=== PATIENT | female | born 1950 | race Hispanic/Latino ===

== ENCOUNTER 2017-11-24 06:34 | Day surgery (SDC) | payer OTHER, MEDICARE ==
[~2017-11-24] VITALS: Ht 162.6 cm; Wt 97.0 kg
[~2017-11-24 06:34] MED LIST: ADV250 IH; ALBU8.5H8 IH; AMLO5TAB2 PO; CARV25TA PO; CLON1PAT13 TD; DOCU100C19 PO; METO5TAB2 PO; MONT10TA24 PO; NITR0.4T50 SL; OMEP40CA37 PO; PHEN125O3 PO; SIMV20TA6 PO; VALS320T15 PO
[2017-11-24] MEDS ORDERED: SODIUM CHLORIDE 0.9% 1000ML 1,000 ML IV ONE (06:48)
[2017-11-24 07:00] VITALS: BP 129/80
[2017-11-24] MEDS ORDERED: PROPOFOL 10 MG/ML 20ML VIAL IV ONE (07:38)
[2017-11-24 07:45] VITALS: BP 114/60
== END 2017-11-24 08:18 | disposition home or self-care (01) ==
LOC: ENDO 06:34 → DAH 06:34 → ENDO 08:18
PROVIDERS: ATTEND Internal Medicine Gastroenterology
DX: Z12.11 Encounter for screening for malignant neoplasm of colon (principal); K21.9 Gastro-esophageal reflux disease without esophagitis; K27.9 Peptic ulcer, site unspecified, unspecified as acute or chronic, without hemorrhage or perforation; I10 Essential (primary) hypertension; J45.909 Unspecified asthma, uncomplicated; M19.90 Unspecified osteoarthritis, unspecified site; E11.9 Type 2 diabetes mellitus without complications; E78.5 Hyperlipidemia, unspecified; G43.909 Migraine, unspecified, not intractable, without status migrainosus; G40.909 Epilepsy, unspecified, not intractable, without status epilepticus; F32.9 Major depressive disorder, single episode, unspecified; Z90.710 Acquired absence of both cervix and uterus; Z98.890 Other specified postprocedural states; Z79.899 Other long term (current) drug therapy; Z86.73 Personal history of transient ischemic attack (TIA), and cerebral infarction without residual deficits; Z98.49 Cataract extraction status, unspecified eye; Z88.8 Allergy status to other drugs, medicaments and biological substances; Z88.6 Allergy status to analgesic agent; Z91.040 Latex allergy status
CPT/HCPCS: 82948; 93005; A4606; G0121; J2704; J7030

== ENCOUNTER → 2018-07-06 | Outpatient (CLI) | payer OTHER, MEDICARE ==
[~2018-07-06] MED LIST changes: -AMLO5TAB2 PO; +AMLO5TAB7 PO; +DOCU-282 PO; -DOCU100C19 PO; -VALS320T15 PO; +VALS320T16 PO
== END | disposition home or self-care (01) ==
LOC: RAH 13:33
PROVIDERS: ATTEND Psychiatry & Neurology Neurology
DX: I67.89 Other cerebrovascular disease (principal)
CPT/HCPCS: 93880

== ENCOUNTER → 2018-07-11 | Outpatient (CLI) | payer OTHER, MEDICARE | END | disposition home or self-care (01) | LOC: RAH 14:10 | PROVIDERS: ATTEND Psychiatry & Neurology Neurology | DX: G31.9 Degenerative disease of nervous system, unspecified (principal); I67.83 Posterior reversible encephalopathy syndrome; K21.9 Gastro-esophageal reflux disease without esophagitis; F32.9 Major depressive disorder, single episode, unspecified; I10 Essential (primary) hypertension; E11.9 Type 2 diabetes mellitus without complications | CPT/HCPCS: 70450 ==

== ENCOUNTER 2018-11-30 16:26 | Emergency (ER) | payer OTHER, MEDICARE ==
[~2018-11-30 16:26] MED LIST changes: -AMLO5TAB7 PO; +AMLO5TAB9 PO
[2018-11-30] MEDS ORDERED: SODIUM CHLORIDE 0.9% 1000ML 1,000 ML IV ONE (16:50)
[2018-11-30] MEDS ORDERED: ONDANSETRON HCL 4 MG/2 ML VIAL ONE (16:50)
[2018-11-30] MEDS ORDERED: FAMOTIDINE/PF 20 MG/2 ML VIAL IV ONE (16:50)
[2018-11-30] MEDS ORDERED: MORPHINE SULFATE 4 MG/1ML SYG ONE (16:51)
[2018-11-30 17:01] LABS: BASOPHILS % (AUTO) 0.9 % (0.0-5.0); EOSINOPHILS % (AUTO) 4.8 % (0.0-8.0); HEMATOCRIT 40.6 % (36-48); LYMPHOCYTES % (AUTO) 32.6 % (21.0-51.0); MEAN CORPUSCULAR HEMOGLOBIN 28.3 pg (27.0-33.0); MEAN CORPUSCULAR HGB CONC 33.3 g/dL (32.0-36.0); MEAN CORPUSCULAR VOLUME 85.2 fL (79-99); MONOCYTES % (AUTO) 7.2 % (3.0-13.0); NEUTROPHILS % (AUTO) 54.5 % (40.0-77.0); PLATELET COUNT (AUTO) 213 K/uL (130-400); RED BLOOD CELL COUNT(AUTO) 4.76 MIL/uL (4.00-5.50); RED CELL DISTRIBUTION WIDTH 14.2 % (11.0-15.5)
[2018-11-30 17:22] LABS: INR 1.03 (0.85-1.15); PARTIAL THROMBOPLASTIN TIME 27.5 SEC (26.3-35.5); PROTHROMBIN TIME 10.8 SEC (9.6-11.6)
[2018-11-30 17:26] LABS: B-TYPE NATRIURETIC PEPTIDE 62 pg/mL (0-100)
[2018-11-30 17:31] LABS: CREATININE 0.9 mg/dL (0.5-1.5); POTASSIUM 4.7 mmol/L (3.5-5.1)
[2018-11-30] MEDS ORDERED: KETOROLAC TROMETHAMINE 15MG/ML ONE (17:45)
[2018-11-30] MEDS ORDERED: MAG HYDROX/AL HYDROX/SIMETH ES 30 ML SUSP UDCUP ONE (17:45)
[2018-11-30] MEDS ORDERED: LIDOCAINE HCL 2% VISCOUS 15 ML UDCUP ONE (17:45)
[2018-11-30 17:54] LABS: BILIRUBIN,TOTAL 0.4 mg/dL (0.2-1.0); TOTAL PROTEIN, SERUM 7.8 g/dL (6.0-8.3)
== END 2018-11-30 19:53 | disposition home or self-care (01) ==
LOC: EDH 16:26
DX: K29.70 Gastritis, unspecified, without bleeding (principal); I10 Essential (primary) hypertension; E11.9 Type 2 diabetes mellitus without complications; E78.5 Hyperlipidemia, unspecified; Z86.73 Personal history of transient ischemic attack (TIA), and cerebral infarction without residual deficits; Z88.5 Allergy status to narcotic agent; Z88.8 Allergy status to other drugs, medicaments and biological substances
CPT/HCPCS: 36415; 71045; 74176; 80053; 82150; 82550; 83690; 83874; 83880; 84484; 85025; 85610; 85730; 93005; 96361; 96374; 96375; 99284; J1885; J2270; J2405; J3490; J7030

== ENCOUNTER → 2018-12-14 | Outpatient (CLI) | payer OTHER, MEDICARE | END | disposition home or self-care (01) | LOC: RAH 12:22 | PROVIDERS: ATTEND Internal Medicine | DX: R09.89 Other specified symptoms and signs involving the circulatory and respiratory systems (principal) | CPT/HCPCS: 93922 ==

== ENCOUNTER 2019-09-26 09:31 | Emergency (ER) | payer OTHER, MEDICARE ==
[~2019-09-26 09:31] MED LIST changes: +OMEP40CA13 PO; -OMEP40CA37 PO; +SIMV-43 PO; -SIMV20TA6 PO
[2019-09-26] MEDS ORDERED: ACETAMINOPHEN EXTRA STRENGTH 500 MG TABLET ONE (10:26)
== END 2019-09-26 10:58 | disposition home or self-care (01) ==
LOC: EDH 09:31
DX: S52.502A Unspecified fracture of the lower end of left radius, initial encounter for closed fracture (principal); E11.9 Type 2 diabetes mellitus without complications; E78.5 Hyperlipidemia, unspecified; I10 Essential (primary) hypertension; Z86.73 Personal history of transient ischemic attack (TIA), and cerebral infarction without residual deficits; Z88.6 Allergy status to analgesic agent; Z88.8 Allergy status to other drugs, medicaments and biological substances; X58.XXXA Exposure to other specified factors, initial encounter; Y93.89 Activity, other specified; Y92.89 Other specified places as the place of occurrence of the external cause; Y99.8 Other external cause status
CPT/HCPCS: 29125; 73110

== ENCOUNTER 2020-06-17 14:16 | Observation (INO) | payer OTHER, MEDICARE ==
[~2020-06-17] VITALS: Ht 157.5 cm; Wt 95.9 kg
[~2020-06-17 14:16] MED LIST changes: -MONT10TA24 PO; +MONT10TA26 PO
[2020-06-17 14:43] LABS: BASOPHILS % (AUTO) 0.9 % (0.0-5.0); EOSINOPHILS % (AUTO) 8.1 % (0.0-8.0); HEMATOCRIT 43.4 % (36-48); LYMPHOCYTES % (AUTO) 37.3 % (21.0-51.0); MEAN CORPUSCULAR HEMOGLOBIN 28.2 pg (27.0-33.0); MEAN CORPUSCULAR HGB CONC 33.2 g/dL (32.0-36.0); MEAN CORPUSCULAR VOLUME 85.1 fL (79-99); MONOCYTES % (AUTO) 8.1 % (3.0-13.0); NEUTROPHILS % (AUTO) 45.4 % (40.0-77.0); PLATELET COUNT (AUTO) 228 K/uL (130-400); RED CELL DISTRIBUTION WIDTH 13.7 % (11.0-15.5); WHITE BLOOD COUNT (AUTO) 5.8 K/uL (4.8-10.8)
[2020-06-17] MEDS ORDERED: ASPIRIN 325 MG TABLET ONE (14:54)
[2020-06-17 15:03] LABS: INR 1.01 (0.85-1.15); PARTIAL THROMBOPLASTIN TIME 26.4 SEC (26.3-35.5); PROTHROMBIN TIME 10.9 SEC (9.6-11.6)
[2020-06-17 15:04] LABS: POTASSIUM 4.2 mmol/L (3.5-5.1)
[2020-06-17 15:09] LABS: ALBUMIN 2.9 g/dL (3.5-5.0); BILIRUBIN,TOTAL 0.2 mg/dL (0.2-1.0); TOTAL PROTEIN, SERUM 7.7 g/dL (6.0-8.3)
[2020-06-17] MEDS ORDERED: NITROGLYCERIN 1GM/1 INCH PACKET TD ONE (15:28)
[2020-06-17 15:35] LABS: B-TYPE NATRIURETIC PEPTIDE 177 pg/mL (0-100)
[2020-06-17] MEDS ORDERED: SODIUM CHLORIDE 0.9% 10 ML VIAL IVP PRN (20:30)
[2020-06-17] MEDS ORDERED: NITROGLYCERIN 0.4 MG SL TAB SL PRN (20:30)
[2020-06-17] MEDS ORDERED: ACETAMINOPHEN 325 MG TAB PO PRN (20:30)
[2020-06-18 00:55] VITALS: BP 176/84
[2020-06-18] MEDS ORDERED: OLME40TA18 PO (01:37)
[2020-06-18] MEDS ORDERED: FLUT16H NASAL (01:37)
[2020-06-18] MEDS ORDERED: FLUT1AER IH (01:37)
[2020-06-18] MEDS ORDERED: CLON.3P TD (03:04)
[2020-06-18 03:51] VITALS: BP 148/79
[2020-06-18 06:52] LABS: CREATINE KINASE, TOTAL 53 U/L (21-232); MYOGLOBIN 60 ng/mL (10-92); TROPONIN I < 0.04 ng/mL (0.00-0.06)
[2020-06-18 07:30] VITALS: BP 150/83
[2020-06-18] MEDS ORDERED: FLUTICASONE PROPIONATE 50MCG/SPRAY 16 GM BOTTLE EN SCH (09:00)
[2020-06-18] MEDS ORDERED: LOSARTAN 100 MG TABLET PO SCH (09:00)
[2020-06-18] MEDS ORDERED: PANTOPRAZOLE SODIUM 40 MG TABLET.DR PO SCH (09:00)
[2020-06-18] MEDS ORDERED: NIFEDIPINE ER 30 MG TAB PO SCH (09:00)
[2020-06-18] MEDS ORDERED: PHENYTOIN SODIUM 100 MG ERCAP PO SCH (09:00)
[2020-06-18] MEDS ORDERED: MONTELUKAST SODIUM 10 MG TAB PO SCH (09:00)
[2020-06-18] MEDS ORDERED: DOCUSATE SODIUM 100 MG CAP PO SCH (09:00)
[2020-06-18] MEDS ORDERED: FLUTICASONE/VILANTEROL 1 EACH AER.POW.BA IH SCH (09:00)
[2020-06-18] MEDS ORDERED: ALBUTEROL INHALER 90MCG/INH IH SCH (09:00)
[2020-06-18] MEDS ORDERED: CLONIDINE 0.3 MG/ 24 HR PATCH TD SCH (09:00)
[2020-06-18] MEDS ORDERED: AMLODIPINE BESYLATE 5 MG TAB PO SCH (09:00)
[2020-06-18] MEDS ORDERED: CARVEDILOL 25 MG TABLET PO SCH (09:00)
[2020-06-18 11:00] VITALS: BP 164/77
[2020-06-18] MEDS ORDERED: ASPIRIN 81MG TAB.CHEW PO SCH (12:30)
[2020-06-18] MEDS ORDERED: CARVEDILOL 12.5 MG TABLET PO ONE (12:47)
[2020-06-18 12:48] VITALS: BP 164/77
[2020-06-18] MEDS ORDERED: CARVEDILOL 12.5 MG TABLET PO SCH (21:00)
[2020-06-18] MEDS ORDERED: SIMVASTATIN 20 MG TABLET PO SCH (21:00)
== END 2020-06-18 16:20 | disposition left against medical advice (07) ==
LOC: EDH 14:16 → EDHIP 19:12 → 3BH 23:17
PROVIDERS: ADMIT Internal Medicine; ATTEND Internal Medicine
DX: R07.89 Other chest pain (principal); Z20.828 Contact with and (suspected) exposure to other viral communicable diseases; I95.2 Hypotension due to drugs; I25.10 Atherosclerotic heart disease of native coronary artery without angina pectoris; I10 Essential (primary) hypertension; E78.5 Hyperlipidemia, unspecified; E11.9 Type 2 diabetes mellitus without complications
CPT/HCPCS: 36415 ×2; 71045; 80053; 82550 ×3; 83874; 83880; 84484 ×4; 85025; 85610; 85730; 87426; 87804 ×2; 93005; 99285; G0378 ×6; U0003

== ENCOUNTER → 2020-07-22 | Outpatient (CLI) | payer OTHER ==
[~2020-07-22] MED LIST changes: -ADV250 IH; +CLON.3P TD; -CLON1PAT13 TD; +FLUT16H NASAL; +FLUT1AER IH; -METO5TAB2 PO; +OLME40TA18 PO; -VALS320T16 PO
== END | disposition home or self-care (01) ==
LOC: RAH 09:29
PROVIDERS: ATTEND Internal Medicine Cardiovascular Disease
DX: Z13.6 Encounter for screening for cardiovascular disorders (principal)
CPT/HCPCS: 75571

== ENCOUNTER 2020-08-28 13:08 | Observation (INO) | payer OTHER, MEDICARE ==
[~2020-08-28] VITALS: Ht 170.2 cm; Wt 96.2 kg
[~2020-08-28 13:08] MED LIST changes: +AMLO-257 PO; -AMLO5TAB9 PO
[2020-08-28 13:28] LABS: BASOPHILS % (AUTO) 0.9 % (0.0-5.0); EOSINOPHILS % (AUTO) 7.5 % (0.0-8.0); LYMPHOCYTES % (AUTO) 38.9 % (21.0-51.0); MEAN CORPUSCULAR HEMOGLOBIN 28.2 pg (27.0-33.0); MEAN CORPUSCULAR HGB CONC 33.4 g/dL (32.0-36.0); MEAN CORPUSCULAR VOLUME 84.4 fL (79-99); MONOCYTES % (AUTO) 5.5 % (3.0-13.0); NEUTROPHILS % (AUTO) 46.8 % (40.0-77.0); PLATELET COUNT (AUTO) 228 K/uL (130-400); RED BLOOD CELL COUNT(AUTO) 4.86 MIL/uL (4.00-5.50); RED CELL DISTRIBUTION WIDTH 13.6 % (11.0-15.5); WHITE BLOOD COUNT (AUTO) 5.5 K/uL (4.8-10.8)
[2020-08-28 13:46] LABS: CREATININE 1.1 mg/dL (0.5-1.5); INR 1.01 (0.85-1.15); PARTIAL THROMBOPLASTIN TIME 25.7 SEC (26.3-35.5); POTASSIUM 3.7 mmol/L (3.5-5.1); PROTHROMBIN TIME 10.9 SEC (9.6-11.6)
[2020-08-28 13:50] LABS: BILIRUBIN,TOTAL 0.2 mg/dL (0.2-1.0); TOTAL PROTEIN, SERUM 7.5 g/dL (6.0-8.3)
[2020-08-28] MEDS ORDERED: ASPIRIN 325 MG TABLET ONE (13:50)
[2020-08-28] MEDS ORDERED: ONDANSETRON HCL 4 MG/2 ML VIAL ONE (13:50)
[2020-08-28] MEDS ORDERED: NITROGLYCERIN 1GM/1 INCH PACKET TD ONE (13:51)
[2020-08-28] MEDS ORDERED: IOHEXOL 350 MG/ML 100ML INFUS..BTL IV ONE (15:57)
[2020-08-28 16:15] LABS: APPEARANCE,URINE Clear (CLEAR); BILIRUBIN,URINE Negative (NEGATIVE); COLOR,URINE Yellow (YELLOW); GLUCOSE, URINE (UA) Negative (NEGATIVE); KETONES,URINE Negative (NEGATIVE); LEUKOCYTE ESTERASE ,URINE Moderate (NEGATIVE); NITRATE,URINE Negative (NEGATIVE); OCCULT BLOOD,URINE Trace (NEGATIVE); PROTEIN,URINE Negative (NEGATIVE); UROBILINOGEN,URINE 0.2 mg/dL (0.2-1.0)
[2020-08-28 16:30] LABS: RBC,URINE None Seen /HPF (0-1)
[2020-08-28 16:31] LABS: BACTERIA,URINE Few /HPF (None Seen); SQUAMOUS EPITHELIAL CELL,UR 0-2 /HPF (0-2)
[2020-08-28] MEDS ORDERED: ENOXAPARIN SODIUM 100 MG/1 ML SQ ONE (18:52)
[2020-08-28] MEDS ORDERED: SODIUM CHLORIDE 0.9% 1000ML 1,000 ML IV ONE (18:52)
[2020-08-28] MEDS: ENOXAPARIN SODIUM 100 MG/1 ML SQ SCH (20:00)
[2020-08-29 02:57] VITALS: BP 160/73
[2020-08-29] MEDS ORDERED: PHEN-460 PO (03:25)
[2020-08-29] MEDS ORDERED: NIFE20CA PO (03:46)
[2020-08-29] MEDS ORDERED: ACET1TAB25 PO (03:46)
[2020-08-29] MEDS ORDERED: NITROGLYCERIN 0.4 MG SL TAB SL PRN (07:45)
[2020-08-29] MEDS ORDERED: ACETAMINOPHEN-CODEINE 300/30MG TAB PO PRN (07:45)
[2020-08-29 07:59] VITALS: BP 178/79
[2020-08-29] MEDS: CARVEDILOL 25 MG TABLET PO SCH ×2 (09:00→19:54)
[2020-08-29] MEDS: DILANTIN 30 MG PO SCH (09:00)
[2020-08-29] MEDS ORDERED: ASPIRIN 81MG TAB.CHEW PO SCH (09:00)
[2020-08-29] MEDS: OLMESARTAN 40 MG PO SCH (09:00)
[2020-08-29] MEDS ORDERED: CLOPIDOGREL BISULFATE 75 MG TAB PO SCH (09:00)
[2020-08-29] MEDS: MONTELUKAST SODIUM 10 MG TAB PO SCH (09:10)
[2020-08-29] MEDS: NIFEDIPINE ER 30 MG TAB PO SCH (09:11)
[2020-08-29] MEDS: PANTOPRAZOLE SODIUM 40 MG TABLET.DR PO SCH (09:11)
[2020-08-29] MEDS: FLUTICASONE PROPIONATE 50MCG/SPRAY 16 GM BOTTLE EN SCH (09:11)
[2020-08-29] MEDS: ENOXAPARIN SODIUM 100 MG/1 ML SQ SCH ×2 (09:12→19:54)
[2020-08-29 09:19] LABS: CREATINE KINASE, TOTAL 68 U/L (21-232); MYOGLOBIN 62 ng/mL (10-92); TROPONIN I < 0.04 ng/mL (0.00-0.06)
--- NOTE | 2020-08-29 09:19 | NUR ---
CLARIFIED ORDER OF LOVENOX 100 MG, ASPIRING AND PLAVIX. DR SABA STATED THAT IT WAS OK TO GIVE ALL OF THEM, ORDERS RECEIVED AND CARRIED OUT.
[2020-08-29] MEDS: ALBUTEROL SULFATE 0.083% 2.5 MG/3 ML INH IH SCH ×3 (11:09→23:56)
[2020-08-29 11:10] VITALS: BP 159/76
--- NOTE | 2020-08-29 12:08 | NUR ---
CM NOTE/IA IA DONE BY DIONNE TURCIOS. PER PATIENT, LIVES WITH SPOUSE, IS SEMI INDEPENDENT WITH ADLS, HAS USE OF WALKER, WHEELCHAIR AND CANE, HAS PROVIDER SERVICES FOR 40HR PER WEEK, AND FEELS SAFE TO RETURN HOME ONCE DISCHARGED. Addendum: 08/29/20 at 1210 by LOLIS PERKINS RN CM Amended: Links added.
--- NOTE | 2020-08-29 15:36 | NUR ---
CHART CHECK COMPLETED. Pt IS A 69 YEAR OLD FEMALE ADMITTED SECONDARY TO [facility]. Pt WITH PAST MEDICAL HISTORY SIGNIFICANT FOR TYPE 2 DIABETES, HYPERTENSION, DYSLIPIDEMIA, STATUS POST CVA, SEIZURE DISORDERS, CORONARY ARTERY DISEASE. Pt CURRENTLY ON REGULAR TEXTURE DIET, THIN LIQUIDS. PLEASE REQUEST FORMAL SKILLED SPEECH THERAPY EVALUATION IF Pt PRESENTS WITH +S/S F ASPIRATION OF COUGH RESPONSE, THROAT CLEAR OR WET VOCAL QUALITY AT MEAL TIMES. Addendum: 08/29/20 at 1536 by TAISHA ARREDONDO, [facility] Amended: Links added.
[2020-08-29 16:26] VITALS: BP 168/89
[2020-08-29 19:37] VITALS: BP 174/89
[2020-08-29 23:34] VITALS: BP 147/89
[2020-08-30] VITALS (10 sets, daily range): BP systolic 128–176; BP diastolic 64–87
[2020-08-30] MEDS: ALBUTEROL SULFATE 0.083% 2.5 MG/3 ML INH IH SCH ×2 (06:16→11:48)
[2020-08-30] MEDS ORDERED: HEPARIN SODIUM 1000UNIT/ML 10ML VIAL ONE (06:47)
[2020-08-30] MEDS ORDERED: IOHEXOL 350 MG/ML 100ML INFUS..BTL IV ONE (06:47)
[2020-08-30] MEDS ORDERED: IOHEXOL-350 50ML VIAL IV ONE (06:47)
[2020-08-30] MEDS ORDERED: NITROGLYCERIN 2 MG/VIAL VIAL IV ONE (06:47)
[2020-08-30] MEDS ORDERED: IOHEXOL-350 75 ML VIAL IV ONE (06:47)
[2020-08-30] MEDS ORDERED: LIDOCAINE HCL 2% 20ML ONE (06:48)
[2020-08-30] MEDS ORDERED: FENTANYL CITRATE PF 50 MCG/1 ML 2ML VIAL ONE (06:48)
[2020-08-30] MEDS ORDERED: MIDAZOLAM HCL 1 MG/ML 2ML VIAL ONE (06:48)
[2020-08-30] MEDS ORDERED: NICARDIPINE HCL 25 MG/10 ML ML IV ONE (06:49)
[2020-08-30] MEDS ORDERED: LABETALOL HCL 5 MG/ML 20ML VIAL IV ONE (08:24)
[2020-08-30] MEDS: DILANTIN 30 MG PO SCH (09:00)
[2020-08-30] MEDS: OLMESARTAN 40 MG PO SCH (09:00)
[2020-08-30] MEDS ORDERED: LIDOCAINE HCL 2% VISCOUS 15 ML UDCUP ONE (09:07)
[2020-08-30] MEDS ORDERED: MAG HYDROX/AL HYDROX/SIMETH ES 30 ML SUSP UDCUP ONE (09:07)
--- NOTE | 2020-08-30 09:30 | NUR ---
PATIENT CAME BACK FROM UNIFORM ROOM ATTENDANT. RIGHT RADIAL ARTERY ACCESSED. RADIAL BAND REMOVAL TO START NOW. PALPABLE PEDAL PULSES. NO HEMATOMA, BLEEDING NOTED ON RIGHT GROIN ACCESS SITE. WILL CONTINUE TO MONITOR.
[2020-08-30] MEDS: MONTELUKAST SODIUM 10 MG TAB PO SCH (09:43)
[2020-08-30] MEDS: CARVEDILOL 25 MG TABLET PO SCH (09:45)
[2020-08-30] MEDS: NIFEDIPINE ER 30 MG TAB PO SCH (09:45)
[2020-08-30] MEDS: PANTOPRAZOLE SODIUM 40 MG TABLET.DR PO SCH (09:45)
[2020-08-30] MEDS: FLUTICASONE PROPIONATE 50MCG/SPRAY 16 GM BOTTLE EN SCH (09:46)
--- NOTE | 2020-08-30 13:30 | NUR ---
RADIAL ARTERY BAND REMOVED. NO BLEEDING, HEMATOMA, S/S OF INFECTION NOTED. COVERED WITH STERILE GAUZE AND TEGADERM.,
--- NOTE | 2020-08-30 18:21 | NUR ---
DISCHARGE PATIENT GIVEN DISCHARGE INSTRUCTIONS AND EDUCATION ON FOLLOW UP APPOINTMENTS, POST CATH CARE, AND CHEST PAIN. PATIENT VERBALIZED UNDERSTANDING OF ALL EDUCATION GIVEN VIA TEACH BACK. NO DISTRESS NOTED UPON DISCHARGE. ALL BELONGINGS TAKEN WITH.
== END 2020-08-30 18:15 | disposition home or self-care (01) ==
LOC: EDH 13:08 → EDHIP 18:11 → 3BH 22:53
PROVIDERS: ADMIT Internal Medicine; ATTEND Internal Medicine
DX: R07.89 Other chest pain (principal); Z20.828 Contact with and (suspected) exposure to other viral communicable diseases; I24.9 Acute ischemic heart disease, unspecified; I45.10 Unspecified right bundle-branch block; I25.10 Atherosclerotic heart disease of native coronary artery without angina pectoris; I10 Essential (primary) hypertension; G40.909 Epilepsy, unspecified, not intractable, without status epilepticus; E11.9 Type 2 diabetes mellitus without complications; I47.9 Paroxysmal tachycardia, unspecified; E78.5 Hyperlipidemia, unspecified; J45.909 Unspecified asthma, uncomplicated; E66.9 Obesity, unspecified; M81.0 Age-related osteoporosis without current pathological fracture; Z86.73 Personal history of transient ischemic attack (TIA), and cerebral infarction without residual deficits; Z90.710 Acquired absence of both cervix and uterus; Z90.49 Acquired absence of other specified parts of digestive tract; Z79.899 Other long term (current) drug therapy; Z88.5 Allergy status to narcotic agent; Z88.8 Allergy status to other drugs, medicaments and biological substances; Z68.33 Body mass index [BMI] 33.0-33.9, adult
CPT/HCPCS: 36415 ×2; 71045; 71275; 80053; 81001; 82550 ×2; 83874; 84484 ×3; 85025; 85610; 85730; 87077; 87088; 87186; 87426; 93005; 93306; 93458; 94640 ×5; 94664; 96372; 99285; C1760; C1769; C1894 ×3; G0378 ×7; J1644 ×2; J1650 ×3; J2250; J2405; J3010; J3490 ×4; J7030; Q9965 ×2; Q9967 ×4; U0003; 75820; 99156; 99157

== ENCOUNTER 2020-12-11 10:44 | Emergency (ER) | payer OTHER, MEDICARE ==
[~2020-12-11 10:44] MED LIST changes: +ACET1TAB25 PO; -AMLO-257 PO; -CLON.3P TD; -DOCU-282 PO; -FLUT1AER IH; -MONT10TA26 PO; +MONT10TA32 PO; +NIFE20CA PO; +PHEN-460 PO; -PHEN125O3 PO; -SIMV-43 PO
[2020-12-11 10:59] LABS: BASOPHILS % (AUTO) 0.2 % (0.0-5.0); EOSINOPHILS % (AUTO) 0.5 % (0.0-8.0); LYMPHOCYTES % (AUTO) 22.3 % (21.0-51.0); MEAN CORPUSCULAR HEMOGLOBIN 28.3 pg (27.0-33.0); MEAN CORPUSCULAR VOLUME 85.8 fL (79-99); MONOCYTES % (AUTO) 6.8 % (3.0-13.0); NEUTROPHILS % (AUTO) 69.9 % (40.0-77.0); PLATELET COUNT (AUTO) 200 K/uL (130-400); RED BLOOD CELL COUNT(AUTO) 5.13 MIL/uL (4.00-5.50); RED CELL DISTRIBUTION WIDTH 13.5 % (11.0-15.5); WHITE BLOOD COUNT (AUTO) 12.5 K/uL (4.8-10.8)
[2020-12-11 11:15] LABS: ALANINE AMINOTRANSFERASE 28 U/L (12-78); ASPARTATE AMINOTRANSFERASE 25 U/L (10-37); BILIRUBIN,TOTAL 0.2 mg/dL (0.2-1.0); CARBON DIOXIDE 23 mmol/L (21-32); CHLORIDE 105 mmol/L (101-111); CREATINE KINASE, TOTAL 72 U/L (21-232); GLOMERULAR FILTR. RATE CALC 59 mL/min (>60); GLUCOSE,RANDOM 93 mg/dL (70-105); POTASSIUM 3.9 mmol/L (3.5-5.1); SODIUM SERUM 137 mmol/L (136-145); TOTAL PROTEIN, SERUM 7.5 g/dL (6.0-8.3); UREA NITROGEN, BLOOD 18 mg/dL (7-18)
[2020-12-11 12:01] LABS: PHENYTOIN (DILANTIN) < 0.5 mcg/mL (10.0-20.0)
[2020-12-11 12:25] LABS: INR 1.08 (0.85-1.15); PROTHROMBIN TIME 11.7 SEC (9.6-11.6)
[2020-12-11 12:27] LABS: PARTIAL THROMBOPLASTIN TIME 22.5 SEC (26.3-35.5)
[2020-12-11 14:13] LABS: APPEARANCE,URINE Clear (CLEAR); BILIRUBIN,URINE Negative (NEGATIVE); COLOR,URINE Yellow (YELLOW); GLUCOSE, URINE (UA) Negative (NEGATIVE); KETONES,URINE Negative (NEGATIVE); LEUKOCYTE ESTERASE ,URINE Negative (NEGATIVE); NITRATE,URINE Negative (NEGATIVE); OCCULT BLOOD,URINE Trace (NEGATIVE); PH,URINE 6.5 (5.0-8.0); PROTEIN,URINE Negative (NEGATIVE); UROBILINOGEN,URINE 0.2 mg/dL (0.2-1.0)
[2020-12-11 14:30] LABS: BACTERIA,URINE Rare /HPF (None Seen); RBC,URINE 0-1 /HPF (0-1); SQUAMOUS EPITHELIAL CELL,UR Rare /HPF (0-2); WBC,URINE 0-1 /HPF (0-1)
[2020-12-11] MEDS ORDERED: ACETAMINOPHEN EXTRA STRENGTH 500 MG TABLET ONE (15:05)
== END 2020-12-11 16:14 | disposition home or self-care (01) ==
LOC: EDH 10:44
DX: G40.89 Other seizures (principal); I10 Essential (primary) hypertension; E78.00 Pure hypercholesterolemia, unspecified; J45.909 Unspecified asthma, uncomplicated; Z79.899 Other long term (current) drug therapy; Z88.9 Allergy status to unspecified drugs, medicaments and biological substances; Z88.5 Allergy status to narcotic agent
CPT/HCPCS: 36415; 70450; 71045; 80053; 80185; 81001; 82550; 84484; 85025; 85610; 85730; 93005

== ENCOUNTER 2021-04-15 10:04 | Emergency (ER) | payer OTHER, MEDICARE ==
[~2021-04-15] VITALS: Ht 167.6 cm; Wt 95.7 kg
[~2021-04-15 10:04] MED LIST changes: -OMEP40CA13 PO; +OMEP40CA21 PO
[2021-04-15 10:06] VITALS: BP 126/64
[2021-04-15 12:30] VITALS: BP 137/71
[2021-04-15] MEDS ORDERED: HYDROCODONE/ACETAMINOPHEN 10/325 MG TAB ONE (12:53)
[2021-04-15] MEDS ORDERED: HYDROCODONE/ACETAMINOPHEN 10/325 MG TAB PO SCH (13:00)
[2021-04-15 14:01] LABS: APPEARANCE,URINE Clear (CLEAR); BILIRUBIN,URINE Negative (NEGATIVE); COLOR,URINE Yellow (YELLOW); GLUCOSE, URINE (UA) Negative (NEGATIVE); KETONES,URINE Negative (NEGATIVE); LEUKOCYTE ESTERASE ,URINE Negative (NEGATIVE); NITRATE,URINE Negative (NEGATIVE); OCCULT BLOOD,URINE Trace (NEGATIVE); PH,URINE 6.5 (5.0-8.0); PROTEIN,URINE Negative (NEGATIVE); UROBILINOGEN,URINE 0.2 mg/dL (0.2-1.0)
[2021-04-15 14:18] LABS: BACTERIA,URINE None Seen /HPF (None Seen); RBC,URINE 0-1 /HPF (0-1); SQUAMOUS EPITHELIAL CELL,UR Few /HPF (0-2); WBC,URINE None Seen /HPF (0-1)
[2021-04-15] MEDS ORDERED: CYCL10 PO (14:48)
[2021-04-15] MEDS ORDERED: TRAM1TAB PO (14:48)
[2021-04-15 15:09] VITALS: BP 143/69
== END 2021-04-15 15:49 | disposition home or self-care (01) ==
LOC: EDH 10:04
DX: M54.41 Lumbago with sciatica, right side (principal); E78.00 Pure hypercholesterolemia, unspecified; I10 Essential (primary) hypertension; Z86.73 Personal history of transient ischemic attack (TIA), and cerebral infarction without residual deficits; Z88.5 Allergy status to narcotic agent; Z79.899 Other long term (current) drug therapy
CPT/HCPCS: 72131; 81001

== ENCOUNTER 2021-10-29 14:48 | Emergency (ER) | payer OTHER, MEDICARE ==
[~2021-10-29] VITALS: Ht 167.6 cm; Wt 108.9 kg
[~2021-10-29 14:48] MED LIST changes: -ACET1TAB25 PO; +MONT-39 PO; -MONT10TA32 PO; -PHEN-460 PO; +PHEN100C9 PO; +SPIR25TA6 PO; +TRAM-355 PO
[2021-10-29] MEDS ORDERED: ASPIRIN 325MG TAB PO SCH (16:00)
[2021-10-29 16:21] LABS: BASOPHILS % (AUTO) 0.6 % (0.0-5.0); EOSINOPHILS % (AUTO) 2.5 % (0.0-8.0); HEMATOCRIT 38.9 % (36-48); LYMPHOCYTES % (AUTO) 26.9 % (21.0-51.0); MEAN CORPUSCULAR HEMOGLOBIN 28.4 pg (27.0-33.0); MEAN CORPUSCULAR HGB CONC 33.2 g/dL (32.0-36.0); MEAN CORPUSCULAR VOLUME 85.5 fL (79-99); MONOCYTES % (AUTO) 6.1 % (3.0-13.0); NEUTROPHILS % (AUTO) 63.6 % (40.0-77.0); PLATELET COUNT (AUTO) 213 K/uL (130-400); RED BLOOD CELL COUNT(AUTO) 4.55 MIL/uL (4.00-5.50); RED CELL DISTRIBUTION WIDTH 13.9 % (11.0-15.5); WHITE BLOOD COUNT (AUTO) 6.9 K/uL (4.8-10.8)
[2021-10-29 16:33] LABS: CREATININE 0.9 mg/dL (0.5-1.5); POTASSIUM 3.8 mmol/L (3.5-5.1)
[2021-10-29 16:38] LABS: ALBUMIN 3.1 g/dL (3.5-5.0); BILIRUBIN,TOTAL 0.1 mg/dL (0.2-1.0); MAGNESIUM 1.9 mg/dL (1.80-2.40); TOTAL PROTEIN, SERUM 7.3 g/dL (6.0-8.3)
[2021-10-29 16:44] LABS: B-TYPE NATRIURETIC PEPTIDE 61 pg/mL (0-100)
[2021-10-29] MEDS ORDERED: IOHEXOL-350 75 ML VIAL IV ONE (17:19)
[2021-10-29 17:36] LABS: APPEARANCE,URINE Clear (CLEAR); BILIRUBIN,URINE Negative (NEGATIVE); COLOR,URINE Yellow (YELLOW); GLUCOSE, URINE (UA) Negative (NEGATIVE); KETONES,URINE Negative (NEGATIVE); LEUKOCYTE ESTERASE ,URINE Trace (NEGATIVE); NITRATE,URINE Positive (NEGATIVE); OCCULT BLOOD,URINE Negative (NEGATIVE); PH,URINE 7.5 (5.0-8.0); PROTEIN,URINE Negative (NEGATIVE); UROBILINOGEN,URINE 0.2 mg/dL (0.2-1.0)
[2021-10-29 17:47] LABS: INFLUENZA TYPE A NEGATIVE FOR TYPE A (NEG); INFLUENZA TYPE B NEGATIVE FOR TYPE B (NEG)
[2021-10-29 17:59] LABS: BACTERIA,URINE Few /HPF (None Seen); RBC,URINE None Seen /HPF (0-1); SQUAMOUS EPITHELIAL CELL,UR None Seen /HPF (0-2); WBC,URINE 0-1 /HPF (0-1)
[2021-10-29 22:57] VITALS: BP 155/78
== END 2021-10-29 22:40 | disposition left against medical advice (07) ==
LOC: EDH 14:48
DX: R41.82 Altered mental status, unspecified (principal); R42 Dizziness and giddiness; R07.89 Other chest pain; R47.81 Slurred speech; I10 Essential (primary) hypertension; E78.00 Pure hypercholesterolemia, unspecified; E11.9 Type 2 diabetes mellitus without complications; Z86.73 Personal history of transient ischemic attack (TIA), and cerebral infarction without residual deficits; Z98.890 Other specified postprocedural states; Z20.822 Contact with and (suspected) exposure to COVID-19
CPT/HCPCS: 36415; 70450; 70496; 70498; 70551; 71045; 80053; 81001; 82948; 83690; 83735; 83880; 84484; 85025; 87077; 87088; 87186; 87635; 87804 ×2; 93005; 99285; C9803; Q9967

== ENCOUNTER 2021-12-29 13:44 | Emergency (ER) | payer OTHER, MEDICARE ==
[2021-12-29 13:55] VITALS: BP 155/75
[2021-12-29 14:11] LABS: EOSINOPHILS % (AUTO) 5.9 % (0.0-8.0); HEMATOCRIT 39.4 % (36-48); LYMPHOCYTES % (AUTO) 41.2 % (21.0-51.0); MEAN CORPUSCULAR HEMOGLOBIN 29.2 pg (27.0-33.0); MEAN CORPUSCULAR HGB CONC 33.5 g/dL (32.0-36.0); MEAN CORPUSCULAR VOLUME 87.2 fL (79-99); MONOCYTES % (AUTO) 7.7 % (3.0-13.0); PLATELET COUNT (AUTO) 238 K/uL (130-400); RED BLOOD CELL COUNT(AUTO) 4.52 MIL/uL (4.00-5.50); RED CELL DISTRIBUTION WIDTH 13.6 % (11.0-15.5); WHITE BLOOD COUNT (AUTO) 6.1 K/uL (4.8-10.8)
[2021-12-29 14:27] LABS: CREATININE 0.8 mg/dL (0.5-1.5); POTASSIUM 4.1 mmol/L (3.5-5.1)
[2021-12-29 14:31] LABS: ALBUMIN 3.3 g/dL (3.5-5.0); BILIRUBIN,TOTAL 0.2 mg/dL (0.2-1.0); TOTAL PROTEIN, SERUM 7.5 g/dL (6.0-8.3)
[2021-12-29 14:50] LABS: APPEARANCE,URINE Clear (CLEAR); BILIRUBIN,URINE Negative (NEGATIVE); COLOR,URINE Yellow (YELLOW); GLUCOSE, URINE (UA) Negative (NEGATIVE); KETONES,URINE Negative (NEGATIVE); LEUKOCYTE ESTERASE ,URINE Trace (NEGATIVE); NITRATE,URINE Negative (NEGATIVE); OCCULT BLOOD,URINE Negative (NEGATIVE); PH,URINE >=9.0 (5.0-8.0); PROTEIN,URINE Negative (NEGATIVE); UROBILINOGEN,URINE 0.2 mg/dL (0.2-1.0)
[2021-12-29 15:14] LABS: BACTERIA,URINE Rare /HPF (None Seen); RBC,URINE 0-1 /HPF (0-1)
[2021-12-29 15:15] LABS: SQUAMOUS EPITHELIAL CELL,UR 0-2 /HPF (0-2)
[2021-12-29] MEDS ORDERED: LIDOCAINE HCL 2% VISCOUS 15 ML UDCUP PO ONE (16:30)
[2021-12-29] MEDS ORDERED: MAG/ALUM/SIMETH 30 ML UDCUP PO ONE (16:30)
[2021-12-29] MEDS ORDERED: DICYCLOMINE HCL 10 MG/5 ML ML PO ONE (16:30)
[2021-12-29] MEDS ORDERED: FAMO20TA8 PO (16:33)
== END 2021-12-29 19:04 | disposition home or self-care (01) ==
LOC: EDH 13:44
DX: K21.9 Gastro-esophageal reflux disease without esophagitis (principal); E78.00 Pure hypercholesterolemia, unspecified; I10 Essential (primary) hypertension; Z79.899 Other long term (current) drug therapy; Z86.73 Personal history of transient ischemic attack (TIA), and cerebral infarction without residual deficits; Z88.5 Allergy status to narcotic agent
CPT/HCPCS: 36415; 80053; 81001; 83690; 84484; 85025; 93005

== ENCOUNTER 2022-07-12 12:46 | Emergency (ER) | payer OTHER, MEDICARE ==
[~2022-07-12 12:46] MED LIST changes: +FAMO20TA8 PO
[2022-07-12 13:21] LABS: EOSINOPHILS % (AUTO) 4.4 % (0.0-8.0); HEMATOCRIT 39.8 % (36-48); LYMPHOCYTES % (AUTO) 32.1 % (21.0-51.0); MEAN CORPUSCULAR HEMOGLOBIN 29.3 pg (27.0-33.0); MEAN CORPUSCULAR HGB CONC 34.4 g/dL (32.0-36.0); MONOCYTES % (AUTO) 9.7 % (3.0-13.0); NEUTROPHILS % (AUTO) 52.5 % (40.0-77.0); PLATELET COUNT (AUTO) 230 K/uL (130-400); RED BLOOD CELL COUNT(AUTO) 4.68 MIL/uL (4.00-5.50); RED CELL DISTRIBUTION WIDTH 13.2 % (11.0-15.5); WHITE BLOOD COUNT (AUTO) 6.1 K/uL (4.8-10.8)
[2022-07-12 13:28] LABS: APPEARANCE,URINE CLEAR (CLEAR); BILIRUBIN,URINE NEGATIVE (NEGATIVE); COLOR,URINE LIGHT-YELLOW (YELLOW); GLUCOSE, URINE (UA) NEGATIVE (NEGATIVE); KETONES,URINE NEGATIVE (NEGATIVE); LEUKOCYTE ESTERASE ,URINE 75 Leu/uL (NEGATIVE); NITRATE,URINE NEGATIVE (NEGATIVE); PROTEIN,URINE NEGATIVE (NEGATIVE); UROBILINOGEN,URINE 0.2 mg/dL (0.2-1.0)
[2022-07-12 13:32] LABS: CREATININE 0.9 mg/dL (0.5-1.5); POTASSIUM 3.8 mmol/L (3.5-5.1)
[2022-07-12 13:37] LABS: ALBUMIN 3.3 g/dL (3.5-5.0); TOTAL PROTEIN, SERUM 7.7 g/dL (6.0-8.3)
[2022-07-12 13:38] LABS: BACTERIA,URINE RARE /HPF (None Seen); RBC,URINE 0-1 /HPF (0-1); SQUAMOUS EPITHELIAL CELL,UR RARE /HPF (0-2)
[2022-07-12 13:59] LABS: B-TYPE NATRIURETIC PEPTIDE 98 pg/mL (0-100)
[2022-07-12 15:06] LABS: ABG BASE EXCESS -1.9 mmol/L (-2.0-3.0); ABG HCO3 21.8 mmol/L (21.0-28.0); ABG OXYGEN SATURATION 95.8 % (95.0-99.0); ABG PCO2 34 mmHg (32-45)
[2022-07-12] MEDS ORDERED: IOHEXOL-350 75 ML VIAL IV ONE (16:34)
[2022-07-12 18:13] VITALS: BP 155/80
== END 2022-07-12 18:26 | disposition left against medical advice (07) ==
LOC: EDH 12:46
DX: R06.00 Dyspnea, unspecified (principal); R82.71 Bacteriuria; Z20.822 Contact with and (suspected) exposure to COVID-19; E11.9 Type 2 diabetes mellitus without complications; E78.00 Pure hypercholesterolemia, unspecified; I10 Essential (primary) hypertension; I25.10 Atherosclerotic heart disease of native coronary artery without angina pectoris; Z98.890 Other specified postprocedural states; Z79.899 Other long term (current) drug therapy; Z88.5 Allergy status to narcotic agent; Z88.8 Allergy status to other drugs, medicaments and biological substances; Z91.040 Latex allergy status
CPT/HCPCS: 99285; 71270; 71045; 87635; 83735; 84484; 80053; 82803; 83880; 85025; 85378; 87077; 87088; 87186; 87804 ×2; 81001; 36415; 93005; 36600; C9803; Q9967

== ENCOUNTER 2023-10-08 13:09 | Emergency (ER) | payer MEDICARE, OTHER ==
[~2023-10-08] VITALS: Ht 167.6 cm; Wt 86.2 kg
[2023-10-08 13:47] LABS: RAPID GROUP A STREP negative (NEGATIVE)
[2023-10-08 13:57] LABS: SARS-CoV-2, RNA, NAAT POSITIVE SARS CoV-2 (NEGATIVE)
[2023-10-08 13:58] LABS: INFLUENZA TYPE A Negative For Type A (NEGATIVE); INFLUENZA TYPE B Negative For Type B (NEGATIVE)
[2023-10-08] MEDS ORDERED: BENZ-39 PO (14:15)
[2023-10-08 14:17] VITALS: BP 150/89; PULSE 98; RESP 14; O2SAT 98
== END 2023-10-08 14:35 | disposition home or self-care (01) ==
LOC: EDH 13:09
DX: U07.1 COVID-19 (principal); R05.9 Cough, unspecified; R51.9 Headache, unspecified; I10 Essential (primary) hypertension; E78.00 Pure hypercholesterolemia, unspecified; E11.9 Type 2 diabetes mellitus without complications; Z88.5 Allergy status to narcotic agent; Z88.8 Allergy status to other drugs, medicaments and biological substances; Z79.899 Other long term (current) drug therapy
CPT/HCPCS: 99283; 87635; 87880; 87804 ×2; C9803

== ENCOUNTER 2023-10-09 04:43 | Emergency (ER) | payer OTHER ==
[~2023-10-09] VITALS: Ht 167.6 cm; Wt 86.2 kg
[~2023-10-09 04:43] MED LIST changes: +BENZ-39 PO
[2023-10-09] MEDS ORDERED: ROCURONIUM BROMIDE 10MG/1ML 5ML VL IV ONE (04:44)
[2023-10-09] MEDS ORDERED: ETOMIDATE 20MG VIAL IVP ONE (04:44)
[2023-10-09] MEDS ORDERED: NALOXONE HCL 0.4 MG/1 ML ML ONE (04:47)
[2023-10-09 04:49] LABS: ABG BASE EXCESS -1.7 mmol/L (-2.0-3.0); ABG HCO3 22.5 mmol/L (21.0-28.0); ABG OXYGEN SATURATION 99.6 % (95.0-99.0); ABG PCO2 37 mmHg (32-45); ABG PH 7.406 (7.35-7.450); CARBON MONOXIDE 0.2; DEVICE COMMENT RR; HHb 0.4; PO2, ARTERIAL BG 347.6 mmHg (83.0-108.0); VENT MODE, BG NRB (ROOM AIR)
[2023-10-09] MEDS ORDERED: FENTANYL 1000MCG+NS 100ML 100 ML IV ONE (04:51)
[2023-10-09 05:00] VITALS: PULSE 62; O2SAT 100
[2023-10-09 05:14] VITALS: PULSE 68; O2SAT 100
[2023-10-09] MEDS ORDERED: IOHEXOL 350 MG/ML 100ML INFUS..BTL IV ONE (05:22)
[2023-10-09] MEDS ORDERED: LEVETIRACETAM 500 MG/5 ML SD VIAL IV SCH (05:30)
[2023-10-09] MEDS ORDERED: MIDAZOLAM 50MG-0.9% NS 50ML 50 ML IV SCH (05:30)
[2023-10-09] MEDS ORDERED: 0.9%NACL 1000ML 1,000 ML IV ONE (05:30)
[2023-10-09 05:32] LABS: BASOPHILS # (AUTO) 0.02 K/uL (0.00-0.20); BASOPHILS % (AUTO) 0.9 % (0.0-5.0); EOSINOPHILS # (AUTO) 0.02 K/uL (0.00-0.70); EOSINOPHILS % (AUTO) 0.9 % (0.0-8.0); HEMATOCRIT 41.2 % (36-48); IMMATURE GRANULOCYTE ABSOLUTE 0.02 K/uL (0-1); LYMPHOCYTES # (AUTO) 1.1 K/uL (1.0-4.8); LYMPHOCYTES % (AUTO) 49.1 % (21.0-51.0); MEAN CORPUSCULAR HEMOGLOBIN 29.6 pg (27.0-33.0); MEAN CORPUSCULAR HGB CONC 34.2 g/dL (32.0-36.0); MEAN CORPUSCULAR VOLUME 86.4 fL (79-99); MONOCYTES # (AUTO) 0.3 K/uL (0.1-1.0); MONOCYTES % (AUTO) 11.9 % (3.0-13.0); NEUTROPHILS # (AUTO) 0.8 K/uL (1.8-7.7); NEUTROPHILS % (AUTO) 36.3 % (40.0-77.0); PLATELET COUNT (AUTO) 142 K/uL (130-400); RED BLOOD CELL COUNT(AUTO) 4.77 MIL/uL (4.00-5.50); RED CELL DISTRIBUTION WIDTH 13.2 % (11.0-15.5); WHITE BLOOD COUNT (AUTO) 2.2 K/uL (4.8-10.8)
[2023-10-09 05:34] LABS: APPEARANCE,URINE CLEAR (CLEAR); BILIRUBIN,URINE NEGATIVE (NEGATIVE); COLOR,URINE YELLOW (YELLOW); GLUCOSE, URINE (UA) NEGATIVE (NEGATIVE); KETONES,URINE NEGATIVE (NEGATIVE); LEUKOCYTE ESTERASE ,URINE NEGATIVE Leu/uL (NEGATIVE); NITRATE,URINE NEGATIVE (NEGATIVE); PROTEIN,URINE 30 mg/dL (NEGATIVE); UROBILINOGEN,URINE 0.2 mg/dL (0.2-1.0)
[2023-10-09 05:40] LABS: ADD UA MICROSCOPIC YES
[2023-10-09 05:41] LABS: BACTERIA,URINE RARE /HPF (None Seen); MUCUS,URINE FEW LPF (None Seen); SQUAMOUS EPITHELIAL CELL,UR RARE /HPF (0-2)
[2023-10-09 05:45] LABS: SARS-CoV-2, RNA, NAAT POSITIVE SARS CoV-2 (NEGATIVE)
[2023-10-09 05:46] LABS: CARBON DIOXIDE 26 mmol/L (21-32); CHLORIDE 96 mmol/L (101-111); GLOMERULAR FILTR. RATE CALC 60 mL/min (>90); GLUCOSE,RANDOM 93 mg/dL (70-105); POTASSIUM 3.2 mmol/L (3.5-5.1); SODIUM SERUM 132 mmol/L (136-145); UREA NITROGEN, BLOOD 13 mg/dL (7-18)
[2023-10-09 05:52] LABS: BAND NEUTROPHILS % (MANUAL) 1 % (0-2); LYMPHOCYTES % (MANUAL) 28 % (22-44); MAN.DIFF COMMENT-IMPRESSION MANUAL DIFFERENTIAL; MONOCYTES % (MANUAL) 2 % (2-9); PLATELET MORPHOLOGY COMMENT ADEQUATE; SEGMENTED NEUTROPHILS % 69 % (40-70); TOTAL CELLS COUNTED 100; WBC MORPHOLOGY CONSISTENT W/DIFF
[2023-10-09 05:54] VITALS: PULSE 62; O2SAT 100
[2023-10-09] MEDS ORDERED: NICARDIPINE 25MG INJ IV ONE (05:55)
[2023-10-09 05:59] LABS: ACETAMINOPHEN < 1 mcg/mL (10-30); ALANINE AMINOTRANSFERASE 39 U/L (12-78); ALBUMIN 2.9 g/dL (3.5-5.0); ALCOHOL, BLOOD < 3 mg/dL (0-10); ASPARTATE AMINOTRANSFERASE 44 U/L (10-37); BILIRUBIN,TOTAL 0.2 mg/dL (0.2-1.0); CREATINE KINASE, TOTAL 104 U/L (21-232); SALICYLATE < 2.8 mg/dL (2.8-20.0); TOTAL PROTEIN, SERUM 7.1 g/dL (6.0-8.3)
[2023-10-09] MEDS ORDERED: [UNRECOGNIZED DRUG - OTHER] IV SCH (06:00)
[2023-10-09] MEDS ORDERED: PHENYTOIN SODIUM 250MG (50 MG/ML) VIAL ONE (06:00)
[2023-10-09] MEDS ORDERED: PHENYTOIN IV SCH (06:00)
[2023-10-09] MEDS: NOREPINEPHRIN 4MG/NS 250ML 250 ML IV ONE ×2 (06:10→06:20)
[2023-10-09] MEDS ORDERED: DOPAMINE 800MG/D5 250ML 250 ML IV ONE (06:30)
[2023-10-09] MEDS ORDERED: ATROPINE 1MG SYG IVP ONE (06:42)
[2023-10-09] MEDS ORDERED: PHARMACY COMMUNICATION MISC STA (06:42)
[2023-10-09] MEDS ORDERED: SODIUM CHLORIDE 3% 500 ML ONE (06:45)
[2023-10-09 07:15] VITALS: PULSE 85; RESP 18; O2SAT 100
[2023-10-09 07:18] VITALS: BP 150/81
[2023-10-09] MEDS ORDERED: DOPAMINE 800MG/D5 250ML 250 ML IV PRN (07:30)
[2023-10-09] MEDS ORDERED: PHENYTOIN 100MG (50MG/ML) INJ 100 MG/2 ML ML IV SCH (07:30)
== END 2023-10-09 07:40 | disposition short-term general hospital (02) ==
LOC: EDH 04:43
DX: S06.5XAA Traumatic subdural hemorrhage with loss of consciousness status unknown, initial encounter (principal); E11.9 Type 2 diabetes mellitus without complications; E78.00 Pure hypercholesterolemia, unspecified; I10 Essential (primary) hypertension; Z79.899 Other long term (current) drug therapy; Z88.5 Allergy status to narcotic agent; Z20.822 Contact with and (suspected) exposure to COVID-19; X58.XXXA Exposure to other specified factors, initial encounter; Y93.89 Activity, other specified; Y92.89 Other specified places as the place of occurrence of the external cause; Y99.8 Other external cause status
CPT/HCPCS: 99291; 31500; 96374; 70450; 71045; 96375; 87635; 82947; 82550; 80185; 84484; 80053; 82803; 85025; 85730; 87040 ×2; 87077; 87186; 83605 ×2; 84146; 36415; 99292; 93005; 36600; 82435; 84132; 84295; 85018; 81001; 82948; G0481; C9803; J3490 ×5; J3010; J2310; J1953; J0461; J1165; J1265; 94002; Q9967